=== PATIENT | female | born 2000 | race Two or more races ===

== ENCOUNTER 2021-07-01 16:38 | Emergency (ER) | payer OTHER ==
[~2021-07-01] VITALS: Ht 149.9 cm; Wt 60.0 kg
[2021-07-01] MEDS ORDERED: KETOROLAC 30MG/ML VIAL IM ONE (17:30)
[2021-07-01] MEDS ORDERED: IBUP-2029 MT (17:30)
[2021-07-01 17:52] VITALS: BP 135/53
== END 2021-07-01 18:10 | disposition home or self-care (01) ==
LOC: ER 16:38
DX: S09.8XXA Other specified injuries of head, initial encounter (principal); S39.012A Strain of muscle, fascia and tendon of lower back, initial encounter; S16.1XXA Strain of muscle, fascia and tendon at neck level, initial encounter; V49.49XA Driver injured in collision with other motor vehicles in traffic accident, initial encounter; Y93.89 Activity, other specified; Y92.488 Other paved roadways as the place of occurrence of the external cause
CPT/HCPCS: 81025; 96372; 99283; J1885